=== PATIENT | male | born 1965 | race Caucasian/White ===

== ENCOUNTER 2025-05-18 07:29 | Inpatient (IN) | payer MEDICAID, SELFPAY ==
[2025-05-18] VITALS (10 sets, daily range): BP systolic 95–113; BP diastolic 65–79; PULSE 86–118; RESP 18–96; TEMP 36.6–38.1; O2SAT 96–98; BMI 24.4; BMI 25.0
--- NOTE | 2025-05-18 07:37 | EKG_ITS ---
[facility] Test Date: 2025-05-18 Pat Name: DAREN MCKOY Department: Room: - Gender: Male Deckhand: : 1965 Requested By: Khari Ac Order Number: [id number] Reading MD: Khari Ac Measurements Intervals [address] Rate: 116 P: 56 ND: 160 QRS: -21 QRSD: 109 T: 104 QT: 330 QTc: 459 Interpretive Statements SINUS TACHYCARDIA BORDERLINE LEFT AXIS DEVIATION [QRS AXIS < -20] ST DEVIATION AND MODERATE T-WAVE ABNORMALITY, CONSIDER LATERAL ISCHEMIA [-0.1+ mV T-WAVE IN I/aVL/V5/V6] Compared to ECG 12/04/2023 11:26:26 Possible ischemia now present Atrial abnormality no longer present T-wave abnormality still present /store/S0/[id number]/ecg/[id number].pdf
[2025-05-18 08:00] LABS: Lactate (Lactic Acid) 1.5 mMol/L (0.4-2.0)
--- NOTE | 2025-05-18 08:07 | PD.EDADULT ---
ED General RME/HPI General Chief complaint: Shortness of Breath/Dyspnea Stated complaint: SOB Time Seen by Provider: 05/18/25 08:01 Arrival date/time: 05/18/25 07:29 Limitations: no limitations RME / HPI RME / HPI narrative: 59 year old male with history of CHF, CKD presents to the ED for multiple complaints. Reports feeling short of breath that began yesterday. Described feeling he is not able to get a deep breath in beginning last night. Additionally complains of pain to his right groin, described as sharp in sensation that is just below the skin , rating as severe. Accompanied by right lower extremity pain. Reports hitting his right leg on a trailer hitch several days ago although denies any other injuries. Denies fevers, chills, chest pain, cough, abdominal pain, n/v/d, or urinary symptoms. Related Data Home Medications ?Medication ?Instructions ?Recorded ?Confirmed apixaban 5 mg tablet (Eliquis) 5 mg PO BID 05/18/25 05/18/25 atorvastatin 40 mg tablet 40 mg PO HS 05/18/25 05/18/25 carvedilol 3.125 mg tablet 3.125 mg PO BID 05/18/25 05/18/25 empagliflozin 10 mg tablet 10 mg PO QDAY 05/18/25 05/18/25 (Jardiance) potassium chloride 20 mEq meq PO 05/18/25 tablet,extended release(part/cryst) sacubitril 24 mg-valsartan 26 mg tab 05/18/25 tablet (Entresto) Previous Rx's ?Medication ?Instructions ?Recorded furosemide 20 mg tablet (Lasix) 20 mg PO QAM #2 tabs 11/27/23 Allergies Allergy/AdvReac Type Severity Reaction Status Date / Time No Known Allergies Allergy Unverified 05/18/25 12:10 Review of Systems Review of Systems Systems Reviewed: All systems reviewed, normal except as documented ED Exam General Limitations: Present no limitations General appearance: Present alert and in no apparent distress Head Head exam: Present atraumatic, normocephalic and normal inspection Eye Eye exam: Present normal appearance, PERRL and EOMI ENT ENT exam: Present normal exam, normal oropharynx and mucous membranes moist Neck Neck exam: Present normal inspection, full ROM and trachea midline Chest Chest inspection: Present normal inspection and symmetric chest wall rise Respiratory Respiratory exam: Present normal lung sounds bilaterally Cardiovascular Cardiovascular exam: Present regular rate, normal rhythm and normal heart sounds Abdominal Exam Abdominal exam: Present soft and normal bowel sounds Extremities Exam Extremities exam: Present full ROM and other (There is a break to the skin right anterior regan with surrounding erythema, hot and tender to touch. There is a palpable area measuring ~ 2cm in the right groin that is tender to touch) Back Exam Back exam: Present normal inspection and full ROM Neurological Exam Neurological exam: Present alert, oriented X3 and CN II-XII intact Psychiatric Psychiatric exam: Present normal affect and normal mood Skin Skin exam: Present warm, dry, intact and normal color Course Quality Measures none Orders Category Date Time Status Leather Tacker STAT Care 05/18/25 07:46 Active EKG (ED ONLY) *Do not use* NOW Care 05/18/25 07:37 Completed Insert IV NOW Care 05/18/25 07:46 Active EKG (ED Only) Stat Exams 05/18/25 07:37 Draft US venous doppler LE RT Stat Exams 05/18/25 08:18 Completed US venous doppler UE RT Stat Exams 05/18/25 08:18 Completed XR chest 1V portable Stat Exams 05/18/25 08:18 Completed B-Type Natriuretic Peptide Stat Lab 05/18/25 07:45 Completed Blood Culture (Lab) Stat Lab 05/18/25 07:58 Received CBC Stat Lab 05/18/25 07:45 Completed Comprehensive Metabolic Panel Stat Lab 05/18/25 07:45 Completed LDH (Lactate Dehydrogenase) Stat Lab 05/18/25 07:45 Completed Lactate (Lactic Acid) Stat Lab 05/18/25 07:45 Completed Lipase Stat Lab 05/18/25 07:45 Completed PT [Prothrombin Time with INR] Stat Lab 05/18/25 08:33 Completed PTT [Partial Thromboplastin Time] Stat Lab 05/18/25 08:33 Completed Procalcitonin Stat Lab 05/18/25 07:45 Completed Troponin I Stat Lab 05/18/25 07:45 Completed Urinalysis Stat Lab 05/18/25 11:50 Completed Urine Culture Stat Lab 05/18/25 11:50 Received Acetaminophen Ivpb [Ofirmev Inj] Med 05/18/25 08:16 Discontinued 1,000 mg in 100 ml IV NOW Doxycycline Inj [Vibramycin Inj] 100 mg Med 05/18/25 08:15 Discontinued Sodium Chloride 0.9% (Pop) [NS 0.9% mini bag] 100 ml IV X1 Piper/Tazo Inj [Zosyn Inj] 4.5 gm Med 05/18/25 08:16 Discontinued Sodium Chloride 0.9% (Pop) [NS 0.9% mini bag] 100 ml IV X1 Sodium Chloride 0.9% 1000 ml [Ns] 1,000 ml Med 05/18/25 08:15 Discontinued IV 999 mls/hr Sodium Chloride 0.9% 500 ml [Ns] 500 ml Med 05/18/25 08:15 Discontinued IV 999 mls/hr Sodium Chloride 0.9% 500 ml [Ns] 500 ml Med 05/18/25 08:21 Discontinued IV 999 mls/hr Oxygen Delivery NOW RT 05/18/25 07:46 Active Vital Signs Vital signs: Vital Signs Temperature 100.6 F H 05/18/25 07:31 Pulse Rate 117 H 05/18/25 07:31 Respiratory Rate 20 05/18/25 07:31 Blood Pressure 113/67 05/18/25 07:31 Pulse Oximetry (%) 97 05/18/25 07:31 Oxygen Delivery Method Nasal Cannula 05/18/25 07:31 Oxygen Flow Rate 4 05/18/25 07:31 Discharge Plan Plan Patient Disposition: Admit Acute Care w/in Hospital Problem List Clinical Impression: Severe sepsis, Cellulitis, Inguinal lymphadenopathy, Chronic renal insufficiency MDM Narrative MDM hospital course: Mary Guy am scribing for and in the presence of Dr. Delgado. Clinical Information Provided by patient Medical Records Reviewed [facility] (I reviewed ED visit on 11/27/2023 ) Meds/Rx Considered, not Ordered None Labs/Rad/Tests considered, not Ordered None Chronic Illness/Social Conditions which may negatively complicate care or outcome(s)-explain: ETOH/drugs/substance abuse Add or document further as needed: Hx of meth use EKG Interpretation EKG #1: Date/time of EK05/18/25 7:38 am EKG interpretation: Sinus tachycardia, rate 116, left axis deviation, no ectopy, T-wave inversion in I and aVL, ST depression in V5 and V6, Q-waves in III and aVF, no STEMI. Lab Interpretation Labs: interpreted by me and see narrative above Lab(s) interpretation(s): Mild leukocytosis BNP 1,424 Urine negative for infection Imaging Radiology reports / interpretation(s): Ordering Physician: Khari Delgado MD Date of Service: 05/18/25 Procedure(s): XR chest 1V portable Accession Number(s): [id number] cc: Ryland Hamm MD; NO PRIMARY/FAMILY,PHYSICIAN; Khari Delgado MD~ Examination: AP chest single view TECHNIQUE: AP portable upright chest single view Date and time: May 18, 2025, 0825 hours Comparison December 04, 2023 INDICATIONS: Shortness of breath fever sepsis today FINDINGS: Mild prominence left ventricle. No lobar pneumonia. Mild accentuation bronchovascular markings. No pulmonary edema. Mild osteopenia. IMPRESSION: Basilar bronchitis pattern Dictated By: Ryland Hamm MD Signed By: <Electronically signed by Ryland Hamm MD in OV> 05/18/25 0904 Ordering Physician: Khari Delgado MD Date of Service: 05/18/25 Procedure(s): US venous doppler UE RT Accession Number(s): [id number] cc: Ryland Hmam MD; NO PRIMARY/FAMILY,PHYSICIAN; Khari Delgado MD~ Examination: Duplex scan of the upper extremity, unilateral right complete Date and time of exam: October 18, 2025 0847 hours INDICATIONS: Right arm pain 18 months Technique: Duplex scan of the extremity veins using B-mode/grayscale imaging and Doppler spectral analysis and color flow Attention is directed to internal echogenicity, compression and augmentation involving these veins, color flow assessment, spectral analysis Findings: Major deep venous structures in the extremity demonstrate normal course and caliber. There is no evidence of deep vein thrombosis. Normal color flow and spectral analysis Impression: Negative for DVT.. Dictated By: Ryland Hamm MD Signed By: <Electronically signed by Ryland Hamm MD in OV> 05/18/25 1004 Ordering Physician: Khari Delgado MD Date of Service: 05/18/25 Procedure(s): US venous doppler LE RT Accession Number(s): [id number] cc: Ryland Hamm MD; NO PRIMARY/FAMILY,PHYSICIAN; Khari Delgado MD~ Examination: Duplex scan of the lower extremity, unilateral right Date and time of exam: May 18, 2025 0904 hours INDICATIONS: Severe right groin pain today, patient is anticoagulated Technique: Duplex scan of the extremity veins using B-mode/grayscale imaging and Doppler spectral analysis and color flow Attention is directed to internal echogenicity, compression and augmentation involving these veins, color flow assessment, spectral analysis Findings: Major deep venous structures in the extremity demonstrate normal course and caliber. There is no evidence of deep vein thrombosis. Normal color flow and spectral analysis Impression: Negative for DVT.. Nonspecific right groin lymphadenopathy, the largest lymph node 2.3 x 1.2 x 2.1 cm Dictated By: Ryland Hamm MD Signed By: <Electronically signed by Ryland Hamm MD in OV> 05/18/25 0946 Medication Administration(s) Medication Administration History Acetaminophen (Acetaminophen 325 Mg Tablet) 650 mg PO Q6H PRN PRN Reason: PAIN SCALE 1-3 (mild Stop: 06/17/25 12:01 Acetaminophen (Acetaminophen 325 Mg Tablet) 650 mg PO Q6H PRN PRN Reason: Fever >100.4 Stop: 06/17/25 12:01 Hydrocodone Bitart/Acetaminophen (Hydrocodone/Apap 10/325 Tab) 1 tab PO Q4HR PRN PRN Reason: PAIN SCALE 7-10 (Severe Stop: 05/23/25 12:01 Apixaban (Apixaban 2.5 Mg Tablet) 5 mg PO BID [facility] Stop: 06/17/25 20:59 Atorvastatin Calcium (Atorvastatin Calcium 20 Mg Tablet) 40 mg PO HS [facility] Stop: 06/17/25 20:59 Carvedilol (Carvedilol 3.125 Mg Tablet) 3.125 mg PO BIDWM [facility] Stop: 06/17/25 17:29 Dextrose (Dextrose 50%-Water Inj 50 Ml Syringe) 25 ml IV Q15MIN PRN PRN Reason: BG 50-70 responsive npo pt Stop: 06/17/25 12:58 Dextrose (Dextrose 50%-Water Inj 50 Ml Syringe) 50 ml IV Q15MIN PRN PRN Reason: BG <50 OR BG <70 & pt unresponsive Stop: 06/17/25 12:58 Doxycycline Hyclate (Doxycycline 100 Mg Tablet) 100 mg PO BID [facility] Stop: 05/25/25 20:59 Glucagon (Glucagon Inj 1 Mg Vial) 1 mg IM Q15MIN PRN PRN Reason: BG <70, and no IV access Ceftriaxone Sodium/Dextrose (Rocephin/D5w 1gm Iv Premix) 1 gm in 50 mls @ 100 mls/hr IV QDAY [facility] Stop: 05/26/25 08:59 Insulin Human Lispro (Insulin Lispro (Admelog) 1 Unit/0.01 Ml Unit) 0 unit SC [facility]; Protocol Stop: 06/17/25 16:59 Ondansetron HCl (Ondansetron Inj 2 Mg/Ml Inj 2 Ml) 4 mg IVP Q6H PRN; Protocol PRN Reason: NAUSEA OR VOMITING Stop: 06/17/25 12:01 Oxycodone/Acetaminophen (Oxycodone/Apap 5/325 Tablet) 1 tab PO Q6H PRN PRN Reason: PAIN SCALE 4-6 (Moderate Stop: 05/23/25 12:01 Pantoprazole Sodium (Pantoprazole Inj 40 Mg Vial) 40 mg IVP QDAY [facility] Stop: 06/17/25 12:14 Last Admin: 05/18/25 12:54 Dose: 40 mg Documented By: VL Discontinued Medications Heparin Sodium (Porcine) (Heparin Sod Inj 5000 Unit/Ml Vial) 5,000 unit SC BID [facility] Stop: 06/01/25 20:59 Acetaminophen (Ofirmev Inj) 1,000 mg in 100 mls @ 250 mls/hr IV NOW ONE Stop: 05/18/25 08:39 Last Infusion: 05/18/25 09:17 Dose: Infused Documented By: Admin: 05/18/25 08:30 Dose: 250 mls/hr Documented By: BUNNY Sodium Chloride (Ns) 1,000 mls @ 999 mls/hr IV .Q1H1M ONE Stop: 05/18/25 09:15 Last Admin: 05/18/25 08:37 Dose: Not Given Documented By: BUNNY Non-Admin Reason: Discontinued Sodium Chloride (Ns) 500 mls @ 999 mls/hr IV .Q31M ONE Stop: 05/18/25 08:45 Last Admin: 05/18/25 08:37 Dose: Not Given Documented By: BUNNY Non-Admin Reason: Discontinued Piperacillin Sod/Tazobactam (Sod 4.5 gm/ Sodium Chloride) 100 mls @ 200 mls/hr IV X1 ONE Stop: 05/18/25 08:45 Last Infusion: 05/18/25 09:17 Dose: Infused Documented By: Admin: 05/18/25 08:35 Dose: 200 mls/hr Documented By: BUNNY Doxycycline Hyclate 100 mg/ (Sodium Chloride) 100 mls @ 100 mls/hr IV X1 ONE Stop: 05/18/25 09:14 Last Infusion: 05/18/25 10:21 Dose: Infused Documented By: Admin: 05/18/25 09:17 Dose: 100 mls/hr Documented By: DB Sodium Chloride (Ns) 500 mls @ 999 mls/hr IV .Q31M ONE Stop: 05/18/25 08:51 Last Infusion: 05/18/25 09:18 Dose: Infused Documented By: Admin: 05/18/25 08:31 Dose: 999 mls/hr Documented By: VL See above Consultations/Discussions re: Management Consult #1: Date/time: 05/18/25 Physician, specialty, service, details: I spoke with resident Dr. Crowley working with Dr. Hodge. Discussed patients PMHx, HPI, ED course, exam findings, labs, and radiology results. The hospitalist agree to accept the patient for admission. Diagnosis Most likely dx, and/or detailed dx discussion: severe sepsis cellulitis inguinal lymphadenopathy chronic renal insufficiency Dispositon Disposition: Admit
[2025-05-18 08:11] LABS: Basophils # (Auto) 0.1 Thou/mm3 (0.0-0.2); Basophils % (Auto) 0 % (0-2.5); Eosinophils # (Auto) 0.2 Thou/mm3 (0.0-0.5); Eosinophils % (Auto) 1 % (0-10); Hematocrit 39.6 % (41.0-53.0); Hemoglobin 13.6 g/dL (13.5-16.0); Immature Granulocytes Auto 0.08 Thou/mm3 (0.00-0.00); Lymphocytes # (Auto) 0.6 Thou/mm3 (1.0-4.8); Lymphocytes % (Auto) 6 % (10-50); Mean Corpuscular HGB Conc 34.3 g/dl (31.0-37.0); Mean Corpuscular Hemoglobin 33.5 pg (25.0-35.0); Mean Corpuscular Volume 98 fL (80-100); Monocytes # (Auto) 0.7 Thou/mm3 (0.0-0.8); Monocytes % (Auto) 6 % (0-12); Neutrophils # (Auto) 9.9 Thou/mm3 (1.8-7.7); Neutrophils % (Auto) 86 % (37-80); Nucleated Red Blood Cell # 0.00 Thou/mm3 (0.00-0.00); Nucleated Red Blood Cell % 0 /100 WBC (0); Platelet Count 157 Thou/mm3 (140-440); RDW Standard Deviation 45.8 fL (35.1-43.9); Red Blood Count 4.06 Miln/mm3 (4.50-5.90); White Blood Count 11.5 Thou/mm3 (3.8-10.6)
--- NOTE | 2025-05-18 08:18 | XR_ITS ---
Examination: AP chest single view TECHNIQUE: AP portable upright chest single view Date and time: May 18, 2025, 0825 hours Comparison December 04, 2023 INDICATIONS: Shortness of breath fever sepsis today FINDINGS: Mild prominence left ventricle. No lobar pneumonia. Mild accentuation bronchovascular markings. No pulmonary edema. Mild osteopenia. IMPRESSION: Basilar bronchitis pattern
--- NOTE | 2025-05-18 08:18 | XR_ITS ---
Examination: Duplex scan of the upper extremity, unilateral right complete Date and time of exam: October 18, 2025 0847 hours INDICATIONS: Right arm pain 18 months Technique: Duplex scan of the extremity veins using B-mode/grayscale imaging and Doppler spectral analysis and color flow Attention is directed to internal echogenicity, compression and augmentation involving these veins, color flow assessment, spectral analysis Findings: Major deep venous structures in the extremity demonstrate normal course and caliber. There is no evidence of deep vein thrombosis. Normal color flow and spectral analysis Impression: Negative for DVT..
--- NOTE | 2025-05-18 08:18 | XR_ITS ---
Examination: Duplex scan of the lower extremity, unilateral right Date and time of exam: May 18, 2025 0904 hours INDICATIONS: Severe right groin pain today, patient is anticoagulated Technique: Duplex scan of the extremity veins using B-mode/grayscale imaging and Doppler spectral analysis and color flow Attention is directed to internal echogenicity, compression and augmentation involving these veins, color flow assessment, spectral analysis Findings: Major deep venous structures in the extremity demonstrate normal course and caliber. There is no evidence of deep vein thrombosis. Normal color flow and spectral analysis Impression: Negative for DVT.. Nonspecific right groin lymphadenopathy, the largest lymph node 2.3 x 1.2 x 2.1 cm
[2025-05-18 08:26] LABS: Alanine Aminotransferase 24 U/L (10-49); Albumin, Serum 4.2 gm/dL (3.5-5.0); Albumin/Globulin Ratio 1.7 (1.2-2.2); Alkaline Phosphatase 90 U/L (46-116); Anion Gap 8 (7-16); Aspartate Amino Transferase 24 U/L (0-34); BUN/Creatinine Ratio 9 Ratio (12-20); Bilirubin,Total 0.8 mg/dL (0.3-1.2); Blood Urea Nitrogen 13 mg/dL (9-23); Calcium 8.8 mg/dL (8.3-10.6); Calcium (Corrected) 8.8 mg/dL (8.5-10.1); Carbon Dioxide 24.0 mMol/L (20.0-31.0); Chloride 106 mMol/L (98-107); Creatinine (Component) 1.5 mg/dL (0.6-1.3); Estimated Creatinine Clearance 61.4 mL/min (>60); Globulin 2.5 gm/dL (2.3-3.5); Glucose 100 mg/dL (74-106); LDH (Lactate Dehydrogenase) 226 U/L (120-246); Lipase 23 U/L (12-53); Osmolality,Calculated 275 (275-295); Potassium 4.2 mMol/L (3.4-5.1); Procalcitonin 0.21 ng/ml (0.0-0.49); Sodium 138 mMol/L (136-145); Total Protein 6.7 gm/dL (5.7-8.2); Troponin I < 0.020 ng/mL (0.0-0.045); eGFR 54 See Note
[2025-05-18] MEDS: ACETAMINOPHEN IVPB 1,000 MG/100 ML VIAL 250 MG IV (08:30)
[2025-05-18] MEDS: SODIUM CHLORIDE 0.9% 500 ML 500 ML 999 ML IV (08:31)
[2025-05-18] MEDS: PIPER/TAZO INJ 4.5 GM in SODIUM CHLORIDE 0.9% (POP) 100 ML IV (08:35)
[2025-05-18] MEDS: DOXYCYCLINE INJ 100 MG in SODIUM CHLORIDE 0.9% (POP) 100 ML IV (09:17)
[2025-05-18 09:21] LABS: B-Type Natriuretic Peptide 1424 pg/mL (0-100)
[2025-05-18 09:24] LABS: INR 1.1 (0.9-1.3); Partial Thromboplastin Time 29.2 Seconds (22.0-36.0); Prothrombin Time 11.8 Seconds (9.0-12.2)
[2025-05-18 11:57] LABS: Collection Type, Urine Clean Catch; Squamous Epithelial Cell,Urine 0 /hpf (0-5)
--- NOTE | 2025-05-18 12:09 | ECHO_ITS ---
Transthoracic Echo Report Ht (in): 73 Wt (lb): 185 Exam Location: Echo Lab Status: Emergency Tobacco Buyer: Mireille Turner Indications: Procedure Performed: BP: 100 / 71 HR: 88 Technical Quality: Technically difficult study MEASUREMENTS (Male / Female) Normal Values 2D ECHO LV Diastolic Diameter PLAX 7.1 cm 4.2 - 5.9 / 3.9 - 5.3 cm LV Systolic Diameter PLAX 6.4 cm IVS Diastolic Thickness 1.0 cm 0.6 - 1.0 / 0.6 - 0.9 cm LVPW Diastolic Thickness 1.2 cm 0.6 - 1.0 / 0.6 - 0.9 cm LV Relative Wall Thickness 0.3 LVOT Diameter 1.9 cm Aortic Root Diameter 3.1 cm LV Ejection Fraction MOD BP 19.4 % >= 55 % LV Cardiac Index MOD BP 2070.0 cm?/min?m? LV Ejection Fraction MOD 4C 20.8 % LV Cardiac Index MOD 4C 1732.0 cm?/min?m? LV Ejection Fraction 4C AL 20.4 % LV Cardiac Index 4C AL 1762.7 cm?/min?m? LV Ejection Fraction MOD 2C 20.7 % LV Cardiac Index MOD 2C 2492.4 cm?/min?m? LV Ejection Fraction 2C AL 19.6 % LV Cardiac Index 2C AL 2420.7 cm?/min?m? LA Volume Index 40.8 cm?/m? 16 - 28 cm?/m? M-MODE Aortic Root Diameter MM 2.5 cm LA Systolic Diameter MM 4.0 cm LA Ao Ratio MM 1.6 AV Cusp Separation MM 1.9 cm DOPPLER AV Peak Velocity 200.0 cm/s AV Peak Gradient 16.0 mmHg AV Mean Gradient 7.0 mmHg AV Velocity Time Integral 33.4 cm AI Peak Velocity 330.0 cm/s AI Peak Gradient 43.6 mmHg AI Pressure Half Time 613.0 ms LVOT Peak Velocity 140.0 cm/s LVOT Peak Gradient 7.8 mmHg LVOT Velocity Time Integral 22.1 cm LVOT Cardiac Index 2647.1 cm?/min?m? AV Area Cont Eq vti 1.9 cm? AV Area Cont Eq pk 2.0 cm? MV Area PHT 7.9 cm? MR Peak Velocity 449.5 cm/s MR Peak Gradient 80.8 mmHg Mitral E Point Velocity 95.6 cm/s Mitral A Point Velocity 85.9 cm/s Mitral E to A Ratio 1.1 LV E' Lateral Velocity 8.9 cm/s Mitral E to LV E' Lateral Ratio 10.7 LV E' Septal Velocity 6.5 cm/s Mitral E to LV E' Septal Ratio 14.6 PV Peak Velocity 130.0 cm/s PV Peak Gradient 6.8 mmHg FINDINGS Left Ventricle The left ventricular cavity size is moderately increased. Mild LVH. The ejection fraction is visually estimated at 15-20 %. Global left ventricular systolic function is severely decreased. Right Ventricle The right ventricle is normal in size and systolic function. Left Atrium Moderately increased left atrial volume 40.8 mL/m?. Right Atrium The right atrium is normal by two-dimensional imaging, color flow and Doppler imaging with no structural abnormalities, no thrombus formation present. Atrial Septum The interatrial septum appears normal with no evidence of a shunt. Aorta The aorta is normal by two-dimensional, color flow and Doppler interrogation. Mitral Valve Moderate mitral regurgitation. Aortic Valve Kijv-hv-xjwssohn aortic valve regurgitation. Aortic valve sclerosis no stenosis. Tricuspid Valve The tricuspid valve is normal by two-dimensional, color flow and Doppler interrogation. There is trace tricuspid valve regurgitation. Pulmonic Valve The pulmonic valve is not well visualized. There is no significant pulmonic valve regurgitation. Vessels The pulmonary artery appears normal. The inferior vena cava pulmonary and hepatic veins appear normal. Pericardium The pericardium is normal by two-dimensional imaging. There is no significant pericardial effusion. CONCLUSIONS Indication: Hx CHF sepsis nees fluids The LV cavity size is moderately increased. Mild LVH. Estimated EF at 15-20 %. Global LV systolic function is severely decreased. The RV is normal in size and systolic function. Moderately increased left atrial volume 40.8 mL/m?. Moderate MR. Ggdj-hb-zjyaszrd AI.Aortic valve sclerosis no stenosis. Trace TR. Mirta Vines (Electronically Signed) Final Date: 20 May 2025 15:21
[2025-05-18 12:47] LABS: Bilirubin,Urine Negative (Negative); Blood,Urine 1+ (Negative); Clarity,Urine Clear (Clear/Hazy); Color,Urine Lt-Yellow (Lt Yel-Yel); Glucose, Urine 4+ (Negative); Ketones,Urine Negative (Negative); Leukocyte Esterase,Urine Negative (Negative); Nitrite,Urine Negative (Negative); PH,Urine 6.0 (5.0-7.0); Protein,Urine Negative (Neg - Trace); RBC,Urine 3 /hpf (0-3); Specific Gravity,Urine 1.020 (1.001-1.035); Urobilinogen,Urine Negative mg/dL (0.0-1.0); WBC,Urine 1 /hpf (0-5)
--- NOTE | 2025-05-18 12:53 | XR_ITS ---
Examination: CT abdomen and pelvis without contrast. Coronal 3-D reconstructions. Sagittal 2-D reconstructions. Date and time of exam:May 18, 2025 1505 hours INDICATIONS: Scrotal swelling and pain beginning one week ago CTDI: vol (mGy): 9.85 DLP: (mGycm): 1021 Technique: Axial images of the abdomen have been obtained, 3 mm slice thickness Intravenous contrast material has not been administered. Low dose protocols were performed. One or more of the following dose reduction techniques were used; automated exposure control, adjustment of the mA and/or KV according to patient size, use of iterative reconstruction technique. Findings: No focal liver or splenic lesions No gallstones No pancreatic mass No renal or ureteral calculi, no hydronephrosis Moderate calcification no aneurysmal dilatation No bowel obstruction Normal appendix No diverticulitis Minimal urinary bladder wall thickening up to 3 mm No prostatomegaly No inguinal hernia Nonspecific groin lymphadenopathy Advanced degenerative disc disease L4-L5 IMPRESSION: No renal or ureteral calculi, no hydronephrosis Normal appendix Minimal cystitis pattern No prostatomegaly No inguinal hernias
--- NOTE | 2025-05-18 12:54 | ESHP_ITS ---
<Statement entered by Star Crowley MD - 05/18/25 20:33> In summary 59-year-old male PMHx of CHF (EF unknown), CKD, bilateral upper extremity DVT on ELIQUIS 5 mg BID, admitted for cellulitis involving right lower extremity and groin area. CT abdominal pelvis showed no evidence of abscess. Was admitted with sepsis, continued on ANTIBIOTICS. Pending echocardiogram, and cultures. Case was discussed with attending physician. Star Crowley DO PGY II This document was transcribed using voice recognition technology. Minor inaccuracies may be present. Documentation for date of: 05/18/25 HPI History of Present Illness History of present illness: Arpit Arce is a 59M with PMHx of CHF, CKD who presented to the at 7:30am 05/18/25 complaining of fatigue, SOB, and Rt lower leg erythema and edema since when he woke up earlier in the morning. Additionally complains of pain in his Rt groin. Patient states that his dyspnea is related to his lower abdominal pain. Meir chest pain. Reports hitting his right leg to a trailer hitch several days ago. Denies fevers, chills, chest pain, cough, abdominal pain, n/v/d, or urinary symptoms. Patient reports hx of blood clot in Right arm and heart Allergies: NKDA PSHx: none FHx: father had ESRD and passed in car accident, mother doing well. Sister while asleep at 29 SHx: smokes 1ppd for 40years. Does not drink alcohol. Denies marijuana. Uses meth occasionally. Reason for admission: Patient presents with signs and symptoms concrning for cellulitis of Right leg, sepsis, and possible HF exacerbation. He is being admitted for proper inpatient work up and treatment of these conditions. Exam Vital Signs Temp Pulse Resp BP Pulse Ox O2 Del Method O2 Flow Rate 98.7 F 105 H 19 103/66 96 Room Air 4 05/18/25 12:21 05/18/25 12:21 05/18/25 12:05/18/25 12:21 05/18/25 12:05/18/25 12:05/18/25 07:31 Narrative Exam General: Alert and oriented x3, No apparent distress. Skin: Intact, Warm, no rashes. HEENT: Normocephalic, Atraumatic. Normal neck range of motion, Supple. Trachea midline. Respiratory: Breath sounds are clear and equal bilaterally with equal chest expansion. Cardiovascular: RRR, normal S1, S2, No murmurs. Distal pulses 2+ Abdomen: Abdomen soft, non-distended, without erythema, or lesions. Normotensive bowel sounds x4. Percussion tympanic. Palpation nontender in all four quadrants. Musculoskeletal: No swelling, moving all 4 extremities with FROM Neurologic: Alert, Oriented, No focal deficits. Moving all 4 extremities spontaneously Extremities: Rt lower leg erythema and edema below the knee which is tender and warm to palpation. DP and PT puleses +2/3 b/l Psych: Thoughts linear and responses appropriate. Results: Labs 05/18/25 07:45 05/18/25 07:45 Labs: Short CBC 05/18/25 Range/Units 07:45 WBC 11.5 H (3.8-10.6) Thou/mm3 Hgb 13.6 (13.5-16.0) g/dL Hct 39.6 L (41.0-53.0) % Plt Count 157 (140-440) Thou/mm3 BMP 05/18/25 07:45 Sodium 138 Potassium 4.2 Chloride 106 Carbon Dioxide 24.0 BUN 13 Creatinine 1.5 H Glucose 100 Calcium 8.8 Cardiac Enzymes 05/18/25 Range/Units 07:45 Troponin I < 0.020 (0.0-0.045) ng/mL Liver Function 05/18/25 Range/Units 07:45 Total Bilirubin 0.8 (0.3-1.2) mg/dL AST 24 (0-34) U/L ALT 24 (10-49) U/L Alkaline Phosphatase 90 (46-116) U/L Albumin 4.2 (3.5-5.0) gm/dL Urine 05/18/25 Range/Units 11:50 Urine Color Lt-Yellow (Lt Yel-Yel) Urine Clarity Clear (Clear/Hazy) Urine pH 6.0 (5.0-7.0) Ur Specific [place] 1.020 (1.001-1.035) Urine Protein Negative (Neg - Trace) Urine Glucose (UA) 4+ A (Negative) Quality Measures Quality Measures VTE prophylaxis Medications Home Medications and Allergies Home Medications ?Medication ?Instructions ?Recorded ?Confirmed ?Type apixaban 5 mg tablet (Eliquis) 5 mg PO BID 05/18/25 History atorvastatin 40 mg tablet 40 mg PO HS 05/18/25 5 History carvedilol 3.125 mg tablet 3.125 mg PO BID 05/18/25 History empagliflozin 10 mg tablet 10 mg PO QDAY 05/18/2505/05 History (Jardiance) sacubitril 24 mg-valsartan 26 mg 1 tab PO BID 05/18/25 05/18/25 History tablet (Entresto) Allergies Allergy/AdvReac Type Severity Reaction Status Date / Time No Known Allergies Allergy Unverified 05/18/25 12:10 Visit Medications Acetaminophen (Acetaminophen 325 Mg Tablet) 650 mg PO Q6H PRN PRN Reason: PAIN SCALE 1-3 (mild Stop: 06/17/25 12:01 Acetaminophen (Acetaminophen 325 Mg Tablet) 650 mg PO Q6H PRN PRN Reason: Fever >100.4 Stop: 06/17/25 12:01 Hydrocodone Bitart/Acetaminophen (Hydrocodone/Apap 10/325 Tab) 1 tab PO Q4HR PRN PRN Reason: PAIN SCALE 7-10 (Severe Stop: 05/23/25 12:01 Doxycycline Hyclate (Doxycycline 100 Mg Tablet) 100 mg PO BID [facility] Stop: 05/25/25 20:59 Heparin Sodium (Porcine) (Heparin Sod Inj 5000 Unit/Ml Vial) 5,000 unit SC BID [facility] Stop: 06/01/25 20:59 Ceftriaxone Sodium/Dextrose (Rocephin/D5w 1gm Iv Premix) 1 gm in 50 mls @ 100 mls/hr IV QDAY [facility] Stop: 05/26/25 08:59 Ondansetron HCl (Ondansetron Inj 2 Mg/Ml Inj 2 Ml) 4 mg IVP Q6H PRN; Protocol PRN Reason: NAUSEA OR VOMITING Stop: 06/17/25 12:01 Oxycodone/Acetaminophen (Oxycodone/Apap 5/325 Tablet) 1 tab PO Q6H PRN PRN Reason: PAIN SCALE 4-6 (Moderate Stop: 05/23/25 12:01 Pantoprazole Sodium (Pantoprazole Inj 40 Mg Vial) 40 mg IVP QDAY [facility] Stop: 06/17/25 12:14 Discontinued Medications Acetaminophen (Ofirmev Inj) 1,000 mg in 100 mls @ 250 mls/hr IV NOW ONE Stop: 05/18/25 08:39 Last Infusion: 05/18/25 09:17 Dose: Infused Sodium Chloride (Ns) 1,000 mls @ 999 mls/hr IV .Q1H1M ONE Stop: 05/18/25 09:15 Last Admin: 05/18/25 08:37 Dose: Not Given Sodium Chloride (Ns) 500 mls @ 999 mls/hr IV .Q31M ONE Stop: 05/18/25 08:45 Last Admin: 05/18/25 08:37 Dose: Not Given Piperacillin Sod/Tazobactam (Sod 4.5 gm/ Sodium Chloride) 100 mls @ 200 mls/hr IV X1 ONE Stop: 05/18/25 08:45 Last Infusion: 05/18/25 09:17 Dose: Infused Doxycycline Hyclate 100 mg/ (Sodium Chloride) 100 mls @ 100 mls/hr IV X1 ONE Stop: 05/18/25 09:14 Last Infusion: 05/18/25 10:21 Dose: Infused Sodium Chloride (Ns) 500 mls @ 999 mls/hr IV .Q31M ONE Stop: 05/18/25 08:51 Last Infusion: 05/18/25 09:18 Dose: Infused Assessment & Plan Plan In summary, Arpit Arce is a 59M with hx of CHF, CKD who presented to the ED on 05/18 c/o sudden onset dyspnea, Rt lower leg erythema/edema, and tender nodule Rt groin. Rt arm pain for 18mo. Scrotol swelling and pain beginning one week ago. #Cellulitis #Rt inguinal lymphadenopathy #Pain and swelling in groin Ddx: Nec Fasciitis, vs venous insufficiency, vs compartment syndrome Rt lower leg erythematous, edematous, warm, and tender to touch since this AM 05/18 US venous doppler Rt LE: Negative for DVT. Nonspecific right groin lymphadenopathy, the largest lymph node 2.3 x 1.2 x 2.1 pro-calc 0.21 MRSA nasal screen ceftriaxone 1g Qday doxycycline 100mg bid CBC, CMP, Mg, and PO4 AM draw Wound care #Sepsis, suspected At presentation, T 100.6, HR 105, WBC 11.5, LA 1.5 Repeat vitals T 99.1F, HR 102 Patient met sepsis criteria at presentation, with vital measures as specified above as well as cellulitis the source of infection and signs of end organ damage with elevated BNP, elevated creatinine. However, in the setting of CHF, recommended rate of IV fluids at 30 cc/kg was reduced to 0.5L NS given as bolus. We will consider repeat bolus after echo results. - pending blood and urine ctx - PT and PTT #CHF BNP 1424, trop i <0.02 CXR: mild prominence of Lt ventricle, mild accentuation of bronchovascular markings, mild osteopenia. findings interpreted as basilar bronchitis. Echo ordered Lipitor PO 40mg HS Carvedilol 3.125mg PO bidWM Entresto held off in the setting of sepsis and soft BP. #hx of Rt arm pain Patient reports hx of blood clot in Right arm US venous doppler Rt UE: Negative for DVT Apixaban 5mg PO BID #Atrial arrhythmia EKG: Sinus tachycardia, rate 116, left axis deviation, no ectopy, T-wave inversion in I and aVL, ST depression in V5 and V6, Q-waves in III and aVF, no STEMI. arhrythmia consistent with Atrial enlargement on previous EKG. Patient heart Apixaban 5mg PO BID #CKD Health Maintanance: Diet: cardiac PPx GI : Protonix bid PPx DVT: heparin 500u subcut bid Code status: full Case was discussed with attending physician, Dr. Hodge, and senior resident Dr Crowley. Gabrielle Napoles, DO PGY I Attending Provider Attestation/Addendum I have examined the patient, reviewed labs and imaging findings, discussed the case with the resident(s), and reviewed entered orders. I agree with the plan of care as outlined in this note, with these additional summaries/recommendations: After examination of the patient and review of the clinical data, I feel that this patient needs admission to the hospital for further treatment and evaluation. Patient is a 59-year-old male with a medical history of CHF (Unknown EF), hyperlipidemia, CKD, primary hypertension, and previous substance abuse presents to [facility] emergency department on 05/18/2025 with nonspecific complaints of fatigue, shortness of breath, groin pain, and lower extremity swelling. Patient seen at bedside. He endorses right groin pain. On physical exam there is tenderness to touch, warmth, and minimal erythema. No fluctuance palpated. He denies testicular pain or urinary symptoms. He denies a history of similar symptoms in the past. He reports he bumped into a trailer hitch days prior but denies any other trauma, bug bites, or IV drug use. CT abdomen and pelvis obtained which did not reveal any abscess or gas in soft tissues. Patient diagnosed with cellulitis of the groin. Blood cultures taken and follow-up results when available. Start IV antibiotics. Ultrasound revealed nonspecific right groin lymphadenopathy with the largest lymph node 2.3 X1.2X 2.1 cm. Unclear how long this has been present but if unresolving he may require biopsy at a later date. Continue pain management as needed and Tylenol as needed for fever. Leukocytosis present and repeat hematology panel in AM. Patient also endorses a history of CHF and has had increasing shortness of breath. Ejection fraction unknown although likely HFrEF given his home medication list. Patient diagnosed with acute CHF exacerbation. Order echocardiogram. For preload reduction we will proceed with fluid restriction and IV Lasix. Resume afterload reduction with Entresto. Resume home neurohormonal blockade with Coreg. BNP 1424 and weight on admission 83.91 kg. Strict I's and O's and goal net negative at least 1.5 L for hospital stay. Patient also noted to have underlying CKD with creatinine 1.5 and BUN 13 on admission. Avoid nephrotoxic agents. Renally dose medicine. Patient reports he takes Eliquis although unclear why at this time. Pending home medication reconciliation. Patient updated on the plan and in agreement. All questions answered to satisfaction. Please see residents note for additional details and management. Dr. Ayesha MD
[2025-05-18] MEDS: ACETAMINOPHEN 325 MG TABLET 650 MG PO (17:31)
[2025-05-18] MEDS: APIXABAN 2.5 MG TABLET 5 MG PO (20:30)
[2025-05-18] MEDS: ATORVASTATIN CALCIUM 20 MG TABLET 40 MG PO (20:30)
[2025-05-18] MEDS: DOXYCYCLINE 100 MG TABLET PO (20:31)
[2025-05-19] VITALS (8 sets, daily range): BP systolic 98–108; BP diastolic 65–71; PULSE 88–109; RESP 14–22; TEMP 36.1–37.6; O2SAT 94–99
[2025-05-19] MEDS: SODIUM CHLORIDE 0.9% 250 ML 250 ML 999 ML IV (00:15)
[2025-05-19 06:15] LABS: Basophils # (Auto) 0.0 Thou/mm3 (0.0-0.2); Basophils % (Auto) 0 % (0-2.5); Eosinophils # (Auto) 0.1 Thou/mm3 (0.0-0.5); Eosinophils % (Auto) 1 % (0-10); Hematocrit 34.4 % (41.0-53.0); Hemoglobin 12.1 g/dL (13.5-16.0); Immature Granulocytes Auto 0.04 Thou/mm3 (0.00-0.00); Lymphocytes # (Auto) 1.3 Thou/mm3 (1.0-4.8); Lymphocytes % (Auto) 13 % (10-50); Mean Corpuscular HGB Conc 35.2 g/dl (31.0-37.0); Mean Corpuscular Hemoglobin 33.2 pg (25.0-35.0); Mean Corpuscular Volume 95 fL (80-100); Monocytes # (Auto) 0.5 Thou/mm3 (0.0-0.8); Monocytes % (Auto) 5 % (0-12); Neutrophils # (Auto) 8.0 Thou/mm3 (1.8-7.7); Neutrophils % (Auto) 80 % (37-80); Nucleated Red Blood Cell # 0.00 Thou/mm3 (0.00-0.00); Nucleated Red Blood Cell % 0 /100 WBC (0); Platelet Count 132 Thou/mm3 (140-440); RDW Standard Deviation 45.0 fL (35.1-43.9); Red Blood Count 3.64 Miln/mm3 (4.50-5.90); White Blood Count 10.1 Thou/mm3 (3.8-10.6)
[2025-05-19 06:23] LABS: Alanine Aminotransferase 17 U/L (10-49); Albumin, Serum 3.4 gm/dL (3.5-5.0); Albumin/Globulin Ratio 1.5 (1.2-2.2); Alkaline Phosphatase 66 U/L (46-116); Anion Gap 10 (7-16); Aspartate Amino Transferase 18 U/L (0-34); BUN/Creatinine Ratio 10 Ratio (12-20); Bilirubin,Total 0.9 mg/dL (0.3-1.2); Blood Urea Nitrogen 13 mg/dL (9-23); Calcium 8.4 mg/dL (8.3-10.6); Calcium (Corrected) 8.9 mg/dL (8.5-10.1); Carbon Dioxide 22.2 mMol/L (20.0-31.0); Chloride 105 mMol/L (98-107); Creatinine (Component) 1.3 mg/dL (0.6-1.3); Estimated Creatinine Clearance 68.8 mL/min (>60); Globulin 2.3 gm/dL (2.3-3.5); Glucose 84 mg/dL (74-106); Magnesium 1.3 mg/dL (1.6-2.6); Osmolality,Calculated 272 (275-295); Phosphorous 2.1 mg/dL (2.4-5.1); Potassium 4.2 mMol/L (3.4-5.1); Sodium 137 mMol/L (136-145); Total Protein 5.7 gm/dL (5.7-8.2); eGFR > 60 See Note
[2025-05-19] MEDS: Magnesium Sulfate 2 GM Ivpb 2 GM/50 ML BAG IV (09:05)
[2025-05-19] MEDS: NAPH,KPH MBDB 1 PACKET (1.5 GM) 2 PACKET PO (09:06)
[2025-05-19] MEDS: DOXYCYCLINE 100 MG TABLET PO ×2 (09:07→21:54)
[2025-05-19] MEDS: cefTRIAXone/D5w 1gm IV premix 1 GM/50 ML BAG IV ×2 (09:07→11:50)
[2025-05-19] MEDS: ACETAMINOPHEN 325 MG TABLET 650 MG PO ×2 (09:08→15:54)
[2025-05-19] MEDS: APIXABAN 2.5 MG TABLET 5 MG PO ×2 (09:08→21:54)
--- NOTE | 2025-05-19 11:17 | PC.SS ---
SS met with patient who is alert/oriented. Patient was able to verify demographics. Patient was admitted for sepsis. He states he resides with his daughter. Patient is independent with ADL's. Patient has right cellulitis of the leg. He state he no longer is employed. Patient does not use any DME. He drives himself to appointments. [facility]acy: [facility] PCP: Dr. Kearney in [place] at [facility]. Last appt. was a few months ago. Patient verbalized his alt medical decision maker is his motherLatosha. d/c plan: return home transportation: family/friends alt medical decision maker: mother, Latosha Arce,
--- NOTE | 2025-05-19 13:29 | ESPR_ITS ---
<Statement entered by Breanna Osorio MD - 05/19/25 20:08> I have reviewed the note and agree with the resident's assessment & plan with exceptions as below. I have personally reviewed labs, imaging, home meds/prior records, examined the patient, formulated and discussed management plan with the IM team. Patient examined at bedside today. Patient reports that his pain is under control at this time. He denies spiking any fevers overnight. Blood cultures show 1 out of 2 blood cultures growing GPC, will repeat blood cultures and continue IV antibiotics. This could be a contaminant however we will increase Rocephin to 2 g IV daily due to concern for bacteremia. Will follow-up with MRSA screen and continue doxycycline for now. Will follow-up blood cultures, repeat hematology and chemistry in the a.m. Breanna Osorio, PGY-2 Internal Medicine Documentation for date of: 05/19/25 Subjective Subjective Interval history: Patient seen at bedside. No acute overnight events. Patient feels better than yesterday. Patient feels the antibiotics is helping. No fevers, no sob, no chest pain, no abdominal pain, no nausea, no vomiting. Exam Vital Signs Temp Pulse Resp BP Pulse Ox O2 Del Method O2 Flow Rate 99.6 F 95 16 100/71 94 L Room Air 4 05/19/25 08:00 05/19/25 12:00 05/19/25 08:00 05/19/25 09:07 05/19/25 08:00 05/19/25 08:00 05/19/25 08:00 Narrative Exam General: Alert and oriented x3, No apparent distress. Skin: Intact, Warm, no rashes. HEENT: Normocephalic, Atraumatic. Normal neck range of motion, Supple. Trachea midline. Respiratory: Breath sounds are clear and equal bilaterally with equal chest expansion. Cardiovascular: RRR, normal S1, S2, No murmurs. Distal pulses 2+ Abdomen: Soft, non-distended, without erythema, or lesions. Normotensive bowel sounds x4. Percussion tympanic. Palpation nontender in all four quadrants. Musculoskeletal: No swelling, moving all 4 extremities with FROM Neurologic: Alert, Oriented, No focal deficits. Moving all 4 extremities spontaneously Extremities: Rt lower leg erythema and edema below the knee which is tender and warm to palpation. DP and PT puleses +2/3 b/l Psych: Thoughts linear and responses appropriate Objective Labs 05/20/25 06:03 05/20/25 06:03 Labs: Laboratory Results - last 24 hr 05/19/25 04:49 WBC 10.1 RBC 3.64 L Hgb 12.1 L Hct 34.4 L MCV 95 MCH 33.2 MCHC 35.2 RDW Std Deviation 45.0 H Plt Count 132 L Neut % (Auto) 80 Lymph % (Auto) 13 [place] % (Auto) 5 Eos % (Auto) 1 Baso % (Auto) 0 Neut # (Auto) 8.0 H Lymph # (Auto) 1.3 [place] # (Auto) 0.5 Eos # (Auto) 0.1 Baso # (Auto) 0.0 Immature Gran # (Auto) 0.04 H Absolute Nucleated RBC 0.00 Immature Gran % 0 Nucleated RBC % 0 Sodium 137 Potassium 4.2 Chloride 105 Carbon Dioxide 22.2 Anion Gap 10 BUN 13 Creatinine 1.3 Estim Creat Clear Calc 68.8 eGFR > 60 BUN/Creatinine Ratio 10 L Glucose 84 Calculated Osmolality 272 L Calcium 8.4 Corrected Calcium 8.9 Phosphorus 2.1 L Magnesium 1.3 L Total Bilirubin 0.9 AST 18 ALT 17 Alkaline Phosphatase 66 D Total Protein 5.7 Albumin 3.4 L D Globulin 2.3 Albumin/Globulin Ratio 1.5 Quality Measures Quality Measures VTE prophylaxis Assessment & Plan Assessment Current Active Medications: Generic Name Dose Route Start Last Admin Trade Name Freq PRN Reason Stop Dose Admin Acetaminophen 650 mg 05/18/25 12:02 05/19/25 09:08 Acetaminophen 325 Mg Tablet PO 06/17/25 12:01 650 mg Q6H PRN Administration PAIN SCALE 1-3 (mild Acetaminophen 650 mg 05/18/25 12:02 Acetaminophen 325 Mg Tablet PO 06/17/25 12:01 Q6H PRN Fever >100.4 Hydrocodone Bitart/Acetaminophen 1 tab 05/18/25 12:02 Hydrocodone/Apap 10/325 Tab PO 05/23/25 12:01 Q4HR PRN PAIN SCALE 7-10 (Severe Apixaban 5 mg 05/18/25 21:00 05/19/25 09:08 Apixaban 2.5 Mg Tablet PO 06/17/25 20:59 5 mg BID DIANELYS Administration Atorvastatin Calcium 40 mg 05/18/25 21:00 05/18/25 20:30 Atorvastatin Calcium 20 Mg Tablet PO 06/17/25 20:59 40 mg HS DIANELYS Administration Carvedilol 3.125 mg 05/18/25 17:30 05/19/25 09:07 Carvedilol 3.125 Mg Tablet PO 06/17/25 17:29 3.125 mg BIDWM DIANELYS Administration Dextrose 25 ml 05/18/25 12:59 Dextrose 50%-Water Inj 50 Ml Syringe IV 06/17/25 12:58 Q15MIN PRN BG 50-70 responsive npo pt Dextrose 50 ml 05/18/25 12:59 Dextrose 50%-Water Inj 50 Ml Syringe IV 06/17/25 12:58 Q15MIN PRN BG <50 OR BG <70 & pt unresponsive Doxycycline Hyclate 100 mg 05/18/25 21:00 05/19/25 09:07 Doxycycline 100 Mg Tablet PO 05/25/25 20:59 100 mg BID DIANELYS Administration Glucagon 1 mg 05/18/25 12:59 Glucagon Inj 1 Mg Vial IM Q15MIN PRN BG <70, and no IV access Ceftriaxone Sodium 2 gm/ 50 mls @ 100 mls/hr 05/20/25 09:00 Sodium Chloride IV 05/27/25 08:59 QDAY [facility] Insulin Human Lispro 0 unit 05/18/25 17:00 05/19/25 11:43 Insulin Lispro (Admelog) 1 Unit/0.01 Ml Unit SC 06/17/25 16:59 Not Given ACHS [facility] Protocol Ondansetron HCl 4 mg 05/18/25 12:02 Ondansetron Inj 2 Mg/Ml Inj 2 Ml IVP 06/17/25 12:01 Q6H PRN NAUSEA OR VOMITING Protocol Oxycodone/Acetaminophen 1 tab 05/18/25 12:02 05/18/25 23:45 Oxycodone/Apap 5/325 Tablet PO 05/23/25 12:01 1 tab Q6H PRN Administration PAIN SCALE 4-6 (Moderate Pantoprazole Sodium 40 mg 05/20/25 09:00 Pantoprazole 40 Mg Tablet PO 06/19/25 08:59 QDAY [facility] Plan 59-year-old male PMHx of CHF (EF unknown), CKD, bilateral upper extremity DVT on ELIQUIS 5 mg BID, admitted for cellulitis involving right lower extremity and groin area. CT abdominal pelvis showed no evidence of abscess. Was admitted with sepsis, continued on ANTIBIOTICS #Cellulitis #Rt inguinal lymphadenopathy #Pain and swelling in groin Ddx: Nec Fasciitis, vs venous insufficiency, vs compartment syndrome Rt lower leg erythematous, edematous, warm, and tender to touch since this AM 05/18 US venous doppler Rt LE: Negative for DVT. Nonspecific right groin lymphadenopathy, the largest lymph node 2.3 x 1.2 x 2.1 pro-calc 0.21 -Increased Ceftriaxone 2g qdaily given bacteremia risk -Doxycycline 100mg bid -Wound care #Sepsis, suspected At presentation, T 100.6, HR 105, WBC 11.5, LA 1.5 Patient met sepsis criteria at presentation, with vital measures as specified above as well as cellulitis the source of infection and signs of end organ damage with elevated BNP, elevated creatinine. However, in the setting of CHF, recommended rate of IV fluids at 30 cc/kg was reduced to 0.5L NS given as bolus. We will consider repeat bolus after echo results. / bottles show blood Cx positive for gram positive cocci - ?possible contaminant -Repeat blood Cx ordered today #CHF BNP 1424, trop i <0.02 CXR: mild prominence of Lt ventricle, mild accentuation of bronchovascular markings, mild osteopenia. findings interpreted as basilar bronchitis. - Echo today - Lipitor PO 40mg HS - Carvedilol 3.125mg PO bidWM - Entresto held off in the setting of sepsis and soft BP. #hx of Rt arm pain Patient reports hx of blood clot in Right arm US venous doppler Rt UE: Negative for DVT - Apixaban 5mg PO BID #Atrial arrhythmia EKG: Sinus tachycardia, rate 116, left axis deviation, no ectopy, T-wave inversion in I and aVL, ST depression in V5 and V6, Q-waves in III and aVF, no STEMI. arhrythmia consistent with Atrial enlargement on previous EKG. - Apixaban 5mg PO BID Health Maintanance: Diet: cardiac PPx GI : Protonix bid PPx DVT: heparin 500u subcut bid Code status: full Case was discussed with attending physician, Dr. Parra, and senior resident Dr Osorio. Attending Provider Attestation/Addendum Malena, Gabriella Parra DO, attest that I was physically present for the mattson portions of the service and evaluated the patient with the resident and I reviewed and discussed the case with the resident and agree with the resident's findings and plans of care as documented above Patient seen and eval this a.m. He states that he is feeling well., But continues to have some discomfort and a knot in his inguinal region, consistent with his lymphadenopathy. Patient noted to have ecchymosis over his right regan and some nonpitting edema. He states that he had hit his leg over the hitch at home while walking. There are some will healed scabs over the region, but no warmth over area, low suspicion for cellulitis. Patient denies any pruritus over the region only mild pain to palpation. Mild lymphadenopathy noted in right inguinal region, but no cellulitis noted. Will await blood cultures at this time that has been growing GPC bacteria. He remains on doxycycline and Rocephin at this time. Will repeat blood cultures due to concern for bacteremia. Patient otherwise has no other complaints. He denies any chest pain, shortness of breath, fevers or chills at this time. He did have chills upon presentation to the ER. Patient is currently afebrile otherwise.
[2025-05-19] MEDS: ATORVASTATIN CALCIUM 20 MG TABLET 40 MG PO (21:54)
[2025-05-20] VITALS (10 sets, daily range): BP systolic 99–116; BP diastolic 60–84; PULSE 82–107; RESP 16–25; TEMP 36.2–36.9; O2SAT 96–98
[2025-05-20] MEDS: ACETAMINOPHEN 325 MG TABLET 650 MG PO (02:37)
[2025-05-20 06:44] LABS: Basophils # (Auto) 0.0 Thou/mm3 (0.0-0.2); Basophils % (Auto) 0 % (0-2.5); Eosinophils # (Auto) 0.2 Thou/mm3 (0.0-0.5); Eosinophils % (Auto) 3 % (0-10); Hematocrit 34.8 % (41.0-53.0); Hemoglobin 12.3 g/dL (13.5-16.0); Immature Granulocytes Auto 0.02 Thou/mm3 (0.00-0.00); Lymphocytes # (Auto) 1.2 Thou/mm3 (1.0-4.8); Lymphocytes % (Auto) 14 % (10-50); Mean Corpuscular HGB Conc 35.3 g/dl (31.0-37.0); Mean Corpuscular Hemoglobin 33.2 pg (25.0-35.0); Mean Corpuscular Volume 94 fL (80-100); Monocytes # (Auto) 0.6 Thou/mm3 (0.0-0.8); Monocytes % (Auto) 7 % (0-12); Neutrophils # (Auto) 6.4 Thou/mm3 (1.8-7.7); Neutrophils % (Auto) 76 % (37-80); Nucleated Red Blood Cell # 0.00 Thou/mm3 (0.00-0.00); Nucleated Red Blood Cell % 0 /100 WBC (0); Platelet Count 111 Thou/mm3 (140-440); RDW Standard Deviation 44.6 fL (35.1-43.9); Red Blood Count 3.71 Miln/mm3 (4.50-5.90); White Blood Count 8.5 Thou/mm3 (3.8-10.6)
[2025-05-20 07:03] LABS: Alanine Aminotransferase 19 U/L (10-49); Albumin, Serum 3.5 gm/dL (3.5-5.0); Albumin/Globulin Ratio 1.4 (1.2-2.2); Alkaline Phosphatase 69 U/L (46-116); Anion Gap 7 (7-16); Aspartate Amino Transferase 22 U/L (0-34); BUN/Creatinine Ratio 6 Ratio (12-20); Bilirubin,Total 0.6 mg/dL (0.3-1.2); Blood Urea Nitrogen 9 mg/dL (9-23); Calcium 8.5 mg/dL (8.3-10.6); Calcium (Corrected) 8.9 mg/dL (8.5-10.1); Carbon Dioxide 21.7 mMol/L (20.0-31.0); Chloride 108 mMol/L (98-107); Creatinine (Component) 1.4 mg/dL (0.6-1.3); Estimated Creatinine Clearance 63.9 mL/min (>60); Globulin 2.5 gm/dL (2.3-3.5); Glucose 94 mg/dL (74-106); Magnesium 1.6 mg/dL (1.6-2.6); Osmolality,Calculated 272 (275-295); Phosphorous 2.9 mg/dL (2.4-5.1); Potassium 4.1 mMol/L (3.4-5.1); Sodium 137 mMol/L (136-145); Total Protein 6.0 gm/dL (5.7-8.2); eGFR 59 See Note
[2025-05-20] MEDS: cefTRIAXone 2 GM in SODIUM CHLORIDE 0.9% (Popper) 50 ML IV (08:25)
[2025-05-20] MEDS: APIXABAN 2.5 MG TABLET 5 MG PO (08:26)
[2025-05-20] MEDS: DOXYCYCLINE 100 MG TABLET PO (08:26)
[2025-05-20] MEDS: PANTOPRAZOLE 40 MG TABLET PO (08:26)
[2025-05-20] MEDS: Magnesium Sulfate 4 GM Ivpb 4 GM/50 ML BAG IV (10:12)
--- NOTE | 2025-05-20 14:56 | PC.SS ---
rounding note repeat blood cultures . D/c within 24 hours
--- NOTE | 2025-05-20 15:58 | PC.SS ---
CORE WINDING OPERATOR fielded phone call from Vesta Abarca Managed [facility]; providing contact information . Vesta Wolf is available at provided number to assist with any discharge needs that the patient might possess.
--- NOTE | 2025-05-20 16:13 | ESPR_ITS ---
<Statement entered by Star Crowley MD - 05/20/25 21:04> In summary: 59-year-old male with PMH of CHF, CKD, bilateral extremity DVT on ELIQUIS, admitted as a sepsis rule out in settings of cellulitis of the groin and bilateral extremity. Continue on ANTIBIOTICS, no recurrent fever, no leukocytosis, vitals are stable. Echocardiogram showed EF 15-20% with global LV systolic function decreased. No signs of CHF exacerbation at this time, no signs of overt overload. Initial 1/2 blood culture grew strep pyogenes. Repeat blood culture is negative after 24 hours. Will likely discharge on oral ANTIBIOTICS if 48-hour blood cultures negative. Case was discussed with attending physician. Star Crowley DO PGY II This document was transcribed using voice recognition technology. Minor inaccuracies may be present. Documentation for date of: 05/20/25 Subjective Subjective Interval history: Patient seen at bedside. No acute overnight events. Patient feels better than yesterday. Patient reports that he no longer has pain in his leg, and it hurts only when walking. No fevers, no sob, no chest pain, no abdominal pain, no nausea, no vomiting. Exam Vital Signs Temp Pulse Resp BP Pulse Ox O2 Del Method O2 Flow Rate 97.8 F 97 25 H 106/70 97 Room Air 4 05/20/25 12:00 05/20/25 15:06 05/20/25 12:00 05/20/25 12:00 05/20/25 12:00 05/20/25 12:00 05/19/25 08:00 Narrative Exam General: Alert and oriented x3, No apparent distress. Skin: Intact, Warm, no rashes. HEENT: Normocephalic, Atraumatic. Normal neck range of motion, Supple. Trachea midline. Respiratory: Breath sounds are clear and equal bilaterally with equal chest expansion. Cardiovascular: RRR, normal S1, S2, No murmurs. Distal pulses 2+ Abdomen: Soft, non-distended, without erythema, or lesions. Normotensive bowel sounds x4. Percussion tympanic. Palpation nontender in all four quadrants. Musculoskeletal: No swelling, moving all 4 extremities with FROM Neurologic: Alert, Oriented, No focal deficits. Moving all 4 extremities spontaneously Extremities: Rt lower leg erythema and edema below the knee which is tender and warm to palpation. DP and PT puleses +2/3 b/l Psych: Thoughts linear and responses appropriate Objective Labs 05/20/25 06:03 05/20/25 06:03 Labs: Laboratory Results - last 24 hr 05/20/25 06:03 WBC 8.5 RBC 3.71 L Hgb 12.3 L Hct 34.8 L MCV 94 MCH 33.2 MCHC 35.3 RDW Std Deviation 44.6 H Plt Count 111 L Neut % (Auto) 76 Lymph % (Auto) 14 Kingfisher % (Auto) 7 Eos % (Auto) 3 Baso % (Auto) 0 Neut # (Auto) 6.4 Lymph # (Auto) 1.2 Kingfisher # (Auto) 0.6 Eos # (Auto) 0.2 Baso # (Auto) 0.0 Immature Gran # (Auto) 0.02 H Absolute Nucleated RBC 0.00 Immature Gran % 0 Nucleated RBC % 0 Sodium 137 Potassium 4.1 Chloride 108 H Carbon Dioxide 21.7 Anion Gap 7 BUN 9 Creatinine 1.4 H Estim Creat Clear Calc 63.9 eGFR 59 L BUN/Creatinine Ratio 6 L Glucose 94 Calculated Osmolality 272 L Calcium 8.5 Corrected Calcium 8.9 Phosphorus 2.9 Magnesium 1.6 Total Bilirubin 0.6 AST 22 ALT 19 Alkaline Phosphatase 69 Total Protein 6.0 Albumin 3.5 Globulin 2.5 Albumin/Globulin Ratio 1.4 Quality Measures Quality Measures VTE prophylaxis Assessment & Plan Assessment Current Active Medications: Generic Name Dose Route Start Last Admin Trade Name Freq PRN Reason Stop Dose Admin Acetaminophen 650 mg 05/18/25 12:02 05/20/25 02:37 Acetaminophen 325 Mg Tablet PO 06/17/25 12:01 650 mg Q6H PRN Administration PAIN SCALE 1-3 (mild Acetaminophen 650 mg 05/18/25 12:02 Acetaminophen 325 Mg Tablet PO 06/17/25 12:01 Q6H PRN Fever >100.4 Hydrocodone Bitart/Acetaminophen 1 tab 05/18/25 12:02 Hydrocodone/Apap 10/325 Tab PO 05/23/25 12:01 Q4HR PRN PAIN SCALE 7-10 (Severe Apixaban 5 mg 05/18/25 21:00 05/20/25 08:26 Apixaban 2.5 Mg Tablet PO 06/17/25 20:59 5 mg BID DIANELYS Administration Atorvastatin Calcium 40 mg 05/18/25 21:00 05/19/25 21:54 Atorvastatin Calcium 20 Mg Tablet PO 06/17/25 20:59 40 mg HS DIANELYS Administration Carvedilol 3.125 mg 05/18/25 17:30 05/20/25 08:26 Carvedilol 3.125 Mg Tablet PO 06/17/25 17:29 3.125 mg BIDWM DIANELYS Administration Dextrose 25 ml 05/18/25 12:59 Dextrose 50%-Water Inj 50 Ml Syringe IV 06/17/25 12:58 Q15MIN PRN BG 50-70 responsive npo pt Dextrose 50 ml 05/18/25 12:59 Dextrose 50%-Water Inj 50 Ml Syringe IV 06/17/25 12:58 Q15MIN PRN BG <50 OR BG <70 & pt unresponsive Doxycycline Hyclate 100 mg 05/18/25 21:00 05/20/25 08:26 Doxycycline 100 Mg Tablet PO 05/25/25 20:59 100 mg BID DIANELYS Administration Glucagon 1 mg 05/18/25 12:59 Glucagon Inj 1 Mg Vial IM Q15MIN PRN BG <70, and no IV access Ceftriaxone Sodium 2 gm/ 50 mls @ 100 mls/hr 05/20/25 09:00 05/20/25 08:25 Sodium Chloride IV 05/27/25 08:59 100 mls/hr QDAY DIANELYS Administration Ondansetron HCl 4 mg 05/18/25 12:02 Ondansetron Inj 2 Mg/Ml Inj 2 Ml IVP 06/17/25 12:01 Q6H PRN NAUSEA OR VOMITING Protocol Oxycodone/Acetaminophen 1 tab 05/18/25 12:02 05/18/25 23:45 Oxycodone/Apap 5/325 Tablet PO 05/23/25 12:01 1 tab Q6H PRN Administration PAIN SCALE 4-6 (Moderate Pantoprazole Sodium 40 mg 05/20/25 09:00 05/20/25 08:26 Pantoprazole 40 Mg Tablet PO 06/19/25 08:59 40 mg QDAY DIANELYS Administration Plan 59-year-old male PMHx of CHF (EF unknown), CKD, bilateral upper extremity DVT on ELIQUIS 5 mg BID, admitted for cellulitis involving right lower extremity and groin area. CT abdominal pelvis showed no evidence of abscess. Was admitted with sepsis, continued on ANTIBIOTICS #Cellulitis #Rt inguinal lymphadenopathy #Pain and swelling in groin Ddx: Nec Fasciitis, vs venous insufficiency, vs compartment syndrome Rt lower leg erythematous, edematous, warm. Non tender as of 05/20. US venous doppler Rt LE: Negative for DVT. Nonspecific right groin lymphadenopathy, the largest lymph node 2.3 x 1.2 x 2.1 pro-calc 0.21 -Increased Ceftriaxone 2g qdaily given bacteremia risk -Doxycycline 100mg bid -Wound care #Sepsis, suspected At presentation, T 100.6, HR 105, WBC 11.5, LA 1.5 on hospital day 2, pt is afebrile, leukocytosis resolved, and VSS wnl. Patient met sepsis criteria at presentation, with vital measures as specified above as well as cellulitis the source of infection and signs of end organ damage with elevated BNP, elevated creatinine. However, in the setting of CHF, recommended rate of IV fluids at 30 cc/kg was reduced to 0.5L NS given as bolus. We will consider repeat bolus after echo results. 11/06 bottles show blood Cx positive for gram positive cocci - ?possible contaminant Repeat blood ctx were negative for growth at 24h point Plan: -pending MRSA nasal swab #CHF BNP 1424, trop i <0.02 CXR: mild prominence of Lt ventricle, mild accentuation of bronchovascular markings, mild osteopenia. findings interpreted as basilar bronchitis. Echo: The LV cavity size is moderately increased. Mild LVH. Estimated EF at 15- 20 %. Global LV systolic function is severely decreased. The RV is normal in size and systolic function. Moderately increased left atrial volume 40.8 mL/m?. Moderate MR. [id number] AI.Aortic valve sclerosis no stenosis. Trace TR. Plan - Lipitor PO 40mg HS - Carvedilol 3.125mg PO bidWM - Entresto held off in the setting of sepsis and soft BP. #hx of Rt arm pain Patient reports hx of blood clot in Right arm US venous doppler Rt UE: Negative for DVT - Apixaban 5mg PO BID #Atrial arrhythmia EKG: Sinus tachycardia, rate 116, left axis deviation, no ectopy, T-wave inversion in I and aVL, ST depression in V5 and V6, Q-waves in III and aVF, no STEMI. arhrythmia consistent with Atrial enlargement on previous EKG. - Apixaban 5mg PO BID Health Maintanance: Diet: cardiac PPx GI : Protonix bid PPx DVT: heparin 500u subcut bid Code status: full This case was discussed with my attending physician, Dr. Win, and senior resident Dr Crowley. Gabrielle Napoles, DO PGY I Attending Provider Attestation/Addendum Patient with CHF, leg swelling. Patient admitted for cellulitis of the right lower extremity. He showed me a wound on the foot and the regan area. This could be portal of entry for him. Patient is responding to IV antibiotic treatment. MRSA will be checked. Discussed with housestaff
--- NOTE | 2025-05-20 21:14 | PD.RESEVENT ---
Documentation for date of: 05/20/25 Event Note Event Note: Received call that patient wanted to leave AMA at 1830. SPoke to patient at beside, who expressed desire to go home for his young daughter. Discussed patient's condition, and that blood cultures were pending, but patient refused to wait until morning to leave. Explained the risks of leaving AMA, patient verbalized understanding. Gave patient a card with information on [facility], encouraged patient to come in tomorrow for blood culture results and to receive outpatient antibiotics. Neymar Hart MD PGY-2
--- NOTE | 2025-05-21 14:04 | ESDS_ITS ---
<Statement entered by Star Crowley MD - 05/22/25 18:19> Arpit Arce, a 59-year-old male with a history of CHF and CKD, presented to the ED on 05/18 with fatigue, shortness of breath, and right lower leg erythema and edema. He also had a tender, inflamed right groin lymph node. Initial lab findings included fever (100.6?F), tachycardia (HR 105), leukocytosis (WBC 11.5), and mild renal impairment (elevated BUN and creatinine). He was diagnosed with sepsis secondary to cellulitis and was admitted for IV fluids and antibiotic therapy (DOXYCYCLINE and CEFTRIAXONE). Over the next two days, his symptoms improved, with nearly complete resolution of leg pain and no further signs of sepsis. Blood cultures grew Streptococcus pyogenes, but repeat cultures were negative after he left the hospital AMA (Against Medical Advice). An MRSA nasal swab was pending. During his hospital stay, the patient was offered continued inpatient management or the option for outpatient treatment with oral antibiotics after blood culture results. However, he chose to leave AMA to care for his young daughter, despite being fully informed of the risks, including worsening infection, sepsis, or even . He was encouraged to follow up at the [facility] for blood culture results and to receive outpatient antibiotics. Admission Diagnoses: Cellulitis, right inguinal lymphadenopathy, right groin pain and swelling, CHF, atrial arrhythmia, CKD. Case was discussed with attending physician. Star Crowley DO PGY II This document was transcribed using voice recognition technology. Minor inaccuracies may be present. Planned Discharge Date 05/21/25 DS: Providers Provider Date of admission: 05/18/25 12:02 Primary care physician: Physician No Primary/Family Admitting Provider: Porfirio Hodge MD Attending Provider on Admission: Joe Win MD Consults: 05/18/25 12:10 Referral OP Wound Healing Dept Routine Comment: Attending Provider on DC: Joe Win MD Discharging Provider: Joe Win MD DS: Diagnosis Problem List Completed Was Problem List Reviewed/Reconciled?: Yes Hospital Course Hospital Course Hospital course: Arpit Arce is a 59yo male with PMHx of CHF, CKD who presented to the ED on 05/18 c/o fatigue, SOB, and Rt lower leg erythema and edema of a few hours long. Pt had a tender inflamed right groin lymph node. At presentation, T 100.6, HR 105, WBC 11.5, LA 1.5, elevated BUN and creatinine. Patient was given the diagnosis of sepsis 2/2 cellulitis and admitted for inpatient IV fluid resuscitation and antibiotic therapy with doxycycline and ceftriaxone. Over the course of next two days, pt improved symptomatically, no longer meeting sepsis criteria, with almost complete resolution of his Rt LE pain. No fevers, no sob, no chest pain, no abdominal pain, no nausea, no vomiting. 1/2 of initial blood cultures grew Strep pyogenes, and repeat cultures came out negative the day after pt left AMA. Pending MRSA nasal swab screening. We provided the patient with several treatment options, including continued inpatient management of cellulitis, possible outpatient treatment with oral antibiotics after results from blood cultures become available. Pt expressed desire expressed desire to go home for his young daughter. We also discussed the risks of leaving AMA, which include but are not limited to: worsening of infection, possible bloodstream infection, sepsis, even . Patient refused to wait until morning to leave. The patient was fully informed of these risks and the potential consequences of discontinuing care, ANOX4. Patient was provided with a card with information on [facility], encouraged patient to come in tomorrow for blood culture results and to receive outpatient antibiotics. Admission Diagnoses: #Cellulitis #Rt inguinal lymphadenopathy #Pain and swelling in groin #CHF #hx of Rt arm pain #Atrial arrhythmia #CKD Imaging: CXR: Mild prominence left ventricle. No lobar pneumonia. Mild accentuation bronchovascular markings. No pulmonary edema. Mild osteopenia. Doppler US Rt UE and LE: Negative for DVT. Echo: The LV cavity size is moderately increased. Mild LVH. Estimated EF at 15- 20 %. Global LV systolic function is severely decreased. The RV is normal in size and systolic function. Moderately increased left atrial volume 40.8 mL/m?. Moderate MR. [id number] AI.Aortic valve sclerosis no stenosis. Trace TR. CTAP: No renal or ureteral calculi, no hydronephrosis. Normal appendix. Minimal cystitis pattern. No prostatomegaly. No inguinal hernias Time Spent with Patient Time attestation: Total time spent providing and/or coordinating discharge services: Time spent: Greater than 30 minutes Exam Vital Signs Temp Pulse Resp BP Pulse Ox O2 Del Method O2 Flow Rate 97.3 F 95 23 H 99/60 96 Room Air 4 05/20/25 16:00 05/20/25 17:54 05/20/25 16:00 05/20/25 17:54 05/20/25 16:00 05/20/25 16:00 05/19/25 08:00 Discharge Plan Plan Patient Disposition: Left Against Medical Advice Prescriptions/Referrals Prescriptions/Med Rec: Discontinued Jardiance 10 mg tablet 10 mg PO QDAY Patient Comments: TAKE 1 TABLET BY MOUTH EVERY DAY No Action furosemide [Lasix] 20 mg tablet 20 mg PO QAM Qty: 2 0RF atorvastatin 40 mg tablet 40 mg PO HS Patient Comments: TAKE 1 TABLET BY MOUTH EVERYDAY AT BEDTIME carvedilol 3.125 mg tablet 3.125 mg PO BID Patient Comments: TAKE 1 TABLET BY MOUTH TWICE A DAY Eliquis 5 mg tablet 5 mg PO BID Patient Comments: TAKE 1 TABLET BY MOUTH TWICE A DAY Entresto 24-26 mg tablet 1 tab PO BID Patient Comments: TAKE 1 TABLET BY MOUTH TWICE A DAY Referrals: No Primary/Family,Physician [Primary Care Provider] - Patient/Caregiver Discharge Instructions Print Language: Montserratian Discharge Order Discharge Orders: Discharge (Routine); Ordered 05/20/25 Ordered By: Ehsan Trent Quality Discharge Quality Measures VTE prophylaxis MD Attestestation MD Attestation Patient left AGAINST MEDICAL ADVICE risk for noncompliance discussed by housestaff. Patient should follow-up with his PCP. Return to the emergency for recurrent symptoms
== END 2025-05-20 19:35 | disposition left against medical advice (07) | DRG 720 ==
LOC: SERX 08:18 → SERHOLD 12:30 → S3NX 17:12 → S3SX 05-19 13:20
PROVIDERS: Admitting Provider Student in an Organized Health Care Education/Training Program; Emergency Provider Emergency Medicine; Visit Provider Internal Medicine
DX: A41.9 Sepsis, unspecified organism (principal); I13.0 Hypertensive heart and chronic kidney disease with heart failure and stage 1 through stage 4 chronic kidney disease, or unspecified chronic kidney disease; N18.9 Chronic kidney disease, unspecified; I50.22 Chronic systolic (congestive) heart failure; I08.0 Rheumatic disorders of both mitral and aortic valves; R59.0 Localized enlarged lymph nodes; E78.5 Hyperlipidemia, unspecified; L03.115 Cellulitis of right lower limb; L03.314 Cellulitis of groin; I49.9 Cardiac arrhythmia, unspecified; M79.601 Pain in right arm; Z53.29 Procedure and treatment not carried out because of patient's decision for other reasons; F15.10 Other stimulant abuse, uncomplicated; F17.210 Nicotine dependence, cigarettes, uncomplicated; Z86.718 Personal history of other venous thrombosis and embolism; Z79.01 Long term (current) use of anticoagulants; Z79.84 Long term (current) use of oral hypoglycemic drugs; Z79.899 Other long term (current) drug therapy
CPT/HCPCS: 36415; 71045; 74176; 80053; 81001; 83605; 83615; 83690; 83735; 83880; 84100; 84145; 84484; 85025; 85610; 85730; 87040; 87077; 87081; 87086; 87186; 93225; 93306; 93971; 96365; 96366; 96375; J0131; J0696; J2470; J2543; J3475; J3490; J7050; J7999; A9270